=== PATIENT | female | born 1940 | race Native Hawaiian/Other Pacific Islander ===

== ENCOUNTER 2019-09-02 09:54 | Outpatient (CLI) | payer OTHER | END 2019-09-02 09:56 | disposition short-term general hospital (02) | LOC: AMB 09:54 | DX: S01.81XA Laceration without foreign body of other part of head, initial encounter (principal); S80.212A Abrasion, left knee, initial encounter; M25.561 Pain in right knee; W18.39XA Other fall on same level, initial encounter; Y93.89 Activity, other specified; Y92.89 Other specified places as the place of occurrence of the external cause | CPT/HCPCS: A0425; A0429 ==

== ENCOUNTER 2019-09-02 10:00 | Emergency (ER) | payer OTHER ==
[~2019-09-02] VITALS: Ht 157.5 cm; Wt 70.3 kg
[2019-09-02 10:01] VITALS: TEMP 97.2
[2019-09-02 13:22] VITALS: BP 148/56
== END 2019-09-02 13:20 | disposition home or self-care (01) ==
LOC: ED 10:00
PROC: 0HQ0XZZ Repair Scalp Skin, External Approach (ICD-10-PCS; principal; 2019-09-02)
DX: S01.01XA Laceration without foreign body of scalp, initial encounter (principal); S72.424A Nondisplaced fracture of lateral condyle of right femur, initial encounter for closed fracture; W01.198A Fall on same level from slipping, tripping and stumbling with subsequent striking against other object, initial encounter; Y92.098 Other place in other non-institutional residence as the place of occurrence of the external cause
CPT/HCPCS: 99283

== ENCOUNTER 2019-09-02 22:28 | Outpatient (CLI) | payer OTHER | END 2019-09-02 22:52 | disposition short-term general hospital (02) | LOC: AMB 22:28 | DX: M25.561 Pain in right knee (principal); W19.XXXA Unspecified fall, initial encounter | CPT/HCPCS: A0425; A0427 ==